=== PATIENT | female | born 1975 | race Caucasian/White ===

== ENCOUNTER 2022-04-05 18:18 | Emergency (ER) | payer BC, SELFPAY ==
[2022-04-05 18:26] VITALS: BP 127/91; PULSE 87; RESP 20; TEMP 36.3; O2SAT 100
--- NOTE | 2022-04-05 18:59 | ED.URI ---
HPI - URI/Sore Throat General Chief Complaint: Upper Respiratory Infection Stated Complaint: Chest Congestion Time Seen by Provider: 04/05/22 19:00 Source: patient and RN notes reviewed Mode of arrival: ambulatory Limitations: no limitations History of Present Illness HPI Narrative: 46 y/o male presented for c/o 2 concerns. She endorses for 4 days she has had right facial pain, head congestion, productive cough of green sputum. She endorses decreased appetite and possible fever without checking it. She had COVID 2 weeks ago. She has been taking multiple [id number] medications for symptoms. She also endorses new onset of vaginal discharge which she describes as clear and cloudy, she denies vaginal itching, burning, urinary frequency, hematuria, abdominal pain or flank pain. LMP 1 week ago. Denies concern for std. States she gets yeast infections after taking over the counter cold meds. MD elicited complaint: cough Related Data Home Medications Medication Instructions Recorded Confirmed bupropion HCl 300 mg 24 hr tablet, 300 mg PO DAILY 04/05/22 04/05/22 extended release hydroxyzine HCl 10 mg tablet 10 mg PO HS 04/05/22 04/05/22 Allergies Allergy/AdvReac Type Severity Reaction Status Date / Time Sulfa (Sulfonamide Allergy Rash Verified 04/05/22 18:54 Antibiotics) erythromycin base AdvReac Nausea and Verified 04/05/22 18:54 Vomiting Review of Systems Review of Systems: CONSTITUTIONAL: Denies malaise, chills, sweats, fever EYES: Denies visual changes, redness, or discharge ENT: Reports rhinorrhea, congestion, sinus pain, denies otalgia, sore throat CARDIOVASCULAR: Denies chest pain, palpitations, edema RESPIRATORY: Reports cough, post nasal drainage. Denies dyspnea GASTROINTESTINAL: Denies abdominal pain, nausea, vomiting, diarrhea SKIN: Denies rash or itching MUSCULOSKELETAL: denies myalgia NEUROLOGIC: Reports headache Exam Narrative: GENERAL: well-appearing EYES: conjunctivae clear ENT: Mucous membranes moist. TMs pearly romo with dull light reflex bilaterally; no tragal tenderness. Oropharynx erythematous without lesions or exudate, no drooling, no hoarseness, no trismus, uvula midline. CHEST: Clear to auscultation, breath sounds equal. HEART: Regular rate and rhythm. No murmur heard. SKIN: Warm, dry, no rash. NEURO: Alert and oriented x3. PSYCH: Normal mood and affect Course Course Emergency Course: Patient is aware of diagnosis, understands and agrees to treatment plan. Anticipatory guidance given. Patient agrees to follow-up as directed and is aware of reasons to seek care at the emergency department. Portions of this record may have been created with voice recognition software Level of Care: Express Care Visit Vital Signs Vital signs: Vital Signs Temperature 97.4 F L 04/05/22 18:26 Pulse Rate 87 04/05/22 18:26 Respiratory Rate 20 04/05/22 18:26 Blood Pressure 127/91 H 04/05/22 18:26 Pulse Oximetry 100 04/05/22 18:26 Oxygen Delivery Room Air 04/05/22 18:26 Temperature 97.4 F L 04/05/22 18:26 Pulse Rate 87 04/05/22 18:26 Respiratory Rate 20 04/05/22 18:26 Blood Pressure 127/91 H 04/05/22 18:26 Pulse Oximetry 100 04/05/22 18:26 Oxygen Delivery Room Air 04/05/22 18:26 reviewed MDM - URI/Sore Throat MDM Narrative Medical decision making narrative: Advised supportive measures for URI, will treat for yeast infection. Reviewed signs/symptoms to go to the ER. Pt is appropriate for outpt treatment and f/u. Scheduled with PCP in 2 days. Differential Diagnosis Differential diagnosis: Likely upper respiratory infection, sinusitis and viral infection Discharge Plan Discharge Clinical Impression: Upper respiratory infection, Vaginal discharge Patient Disposition: Home, Self-Care Condition: Stable Instructions: Upper Respiratory Infection (ED), Yeast Infection (ED) Additional Instructions: Your urine will be sent of for a c
== END 2022-04-05 19:15 | disposition home or self-care (01) ==
PROVIDERS: Emergency Provider Nurse Practitioner Family
DX: J06.9 Acute upper respiratory infection, unspecified (principal); N89.8 Other specified noninflammatory disorders of vagina
CPT/HCPCS: 81003; 87086; 99213; G0463